=== PATIENT | male | born 1950 | race Caucasian/White ===

== ENCOUNTER 2017-05-09 12:33 | Emergency (ER) | payer OTHER ==
[2017-05-09 12:39] VITALS: TEMP 98.8
[2017-05-09] MEDS ORDERED: LIDOCAINE BUFFERED 1% 50 ML SOL SC ONE (12:59)
[2017-05-09] MEDS ORDERED: LIDOCAINE 5% PATCH 1 PATCH TDM TOP ONE (12:59)
[2017-05-09] MEDS ORDERED: LIDOCAINE HCL 1% MDV SOL IM ONE (13:00)
[2017-05-09] MEDS ORDERED: LIDOCAINE HCL 1% MPF SOL ONE (13:02)
[2017-05-09 13:46] VITALS: BP 139/80; PULSE 81; RESP 17; O2SAT 96
== END 2017-05-09 13:42 | disposition home or self-care (01) | DRG 556 ==
LOC: ED 12:33
DX: M25.512 Pain in left shoulder (principal); D17.9 Benign lipomatous neoplasm, unspecified; M62.838 Other muscle spasm
CPT/HCPCS: 99282; J2001

== ENCOUNTER 2018-04-27 04:47 | Emergency (ER) | payer OTHER ==
[2018-04-27] MEDS ORDERED: KETOROLAC TROMETHAMINE 30 MG/ML SOL IM ONE (05:08)
[2018-04-27] MEDS ORDERED: TRAMADOL HYDROCHLORIDE 50 MG TAB PO ONE (05:08)
[2018-04-27 05:12] VITALS: TEMP 96.8
[2018-04-27] MEDS ORDERED: KETOROLAC TROMETHAMINE 30 MG/ML SOL ONE (05:17)
[2018-04-27] MEDS ORDERED: TRAMADOL HYDROCHLORIDE 50 MG TAB ONE (05:17)
[2018-04-27] MEDS ORDERED: LIDOCAINE HCL 2% MPF 10 ML SOL SC ONE (05:39)
[2018-04-27] MEDS ORDERED: LIDOCAINE HCL 2% MPF 10 ML SOL ONE (05:40)
[2018-04-27] MEDS ORDERED: METHYLPREDNISOLONE 1 GM/ML PDS 1,000 MG/16 ML PDS ONE (05:43)
[2018-04-27] MEDS ORDERED: SOLUMEDROL 125 MG/2 ML 125 MG/2 ML PDS IM ONE (05:43)
[2018-04-27] MEDS ORDERED: SOLUMEDROL 125 MG/2 ML 125 MG/2 ML PDS ONE ×2 (05:44)
[2018-04-27] MEDS ORDERED: METHYLPREDNISOLONE ACETATE 80 MG/ML IM SCH (05:45)
[2018-04-27 06:41] VITALS: RESP 20
[2018-04-27 06:44] VITALS: O2SAT 96
[2018-04-27 06:45] VITALS: BP 144/92; PULSE 77
== END 2018-04-27 06:41 | disposition home or self-care (01) | DRG 556 ==
LOC: ED 04:47
DX: M25.511 Pain in right shoulder (principal); E11.9 Type 2 diabetes mellitus without complications
CPT/HCPCS: 82962; 96372; 99282; 99283; J1885; J2930; A9270-GY